=== PATIENT | female | born 1945 | race African-American/Black ===

== ENCOUNTER 2021-06-23 22:02 | Observation (INO) ==
[2021-06-23] MEDS ORDERED: ASPIRIN 325 MG TABLET PO STA (22:30)
[2021-06-23 23:16] LABS: Basophils % 0.6 % (0.0-0.8); Eosinophils # 0.1 10*3/uL (0.0-0.87); Eosinophils % 1.2 % (0.00-10.9); Hematocrit 38.9 VOL% (35.7-47.0); Hemoglobin 12.7 GM/DL (12.0-16.0); Immature Granulocytes % 0.2 %; Immature Granulocytes Absolute 0.01 #; Lymphocytes % 39.2 % (21.3-54.2); Mean Corpuscular HGB Conc 32.6 GM/DL (32-36); Mean Corpuscular Volume 94.4 FL (87-102); Mean Platelet Volume 10.3 FL (9.6-12.0); Monocytes % 9.4 % (1.7-12.7); Neutrophils % 49.4 % (38.7-73.9); Platelet Count 276 T/CUMM (130-400); Red Blood Count 4.12 MC/CUMM (3.8-5.5); Red Cell Distribution Width 12.5 % (9.3-17.3); White Blood Count 5.1 T/CUMM (4-12)
[2021-06-24 00:39] LABS: Albumin 3.4 G/DL (3.4-5.0); Bilirubin,Total 0.6 MG/DL (0.20-1.00); Calcium 9.4 MG/DL (8.5-10.1); Osmolality,Calculated 276.5 MOS/KG (273-304); Potassium 4.2 MMOL/L (3.5-5.1); Total Protein 7.6 G/DL (6.4-8.2)
[2021-06-24] MEDS ORDERED: NITROGLYCERIN 2% OINT 1 INCH/GM PACK TOP STA (00:43)
[2021-06-24] MEDS ORDERED: ONDANSETRON 4 MG/2 ML VIAL IV PRN (01:01)
[2021-06-24] MEDS ORDERED: ACETAMINOPHEN 325 MG TABLET PO PRN (01:01)
[2021-06-24] MEDS: ENOXAPARIN 40 MG/0.4 ML SYRINGE SUBCUT SCH (04:30)
[2021-06-24 06:40] LABS: Risk Ratio 2.06; VLDL Cholesterol 15.6 MG/DL
[2021-06-24] MEDS: PANTOPRAZOLE 40 MG TABLET PO SCH (09:02)
[2021-06-24] MEDS ORDERED: METOPROLOL TARTRATE 25 MG TABLET PO STA (12:19)
[2021-06-24] MEDS: LOSARTAN 50 MG TABLET PO SCH (13:10)
[2021-06-24] MEDS ORDERED: ATORVASTATIN 40 MG TABLET PO SCH (21:00)
[2021-06-24] MEDS: TICAGRELOR 90 MG TABLET PO SCH (22:10)
[2021-06-24] MEDS: METOPROLOL TARTRATE 25 MG TABLET PO SCH (22:10)
[2021-06-25] MEDS: ENOXAPARIN 40 MG/0.4 ML SYRINGE SUBCUT SCH (05:00)
[2021-06-25 06:34] LABS: Basophils % 0.6 % (0.0-0.8); Eosinophils # 0.1 10*3/uL (0.0-0.87); Eosinophils % 2.1 % (0.00-10.9); Hematocrit 42.3 VOL% (35.7-47.0); Hemoglobin 13.6 GM/DL (12.0-16.0); Immature Granulocytes % 0.4 %; Immature Granulocytes Absolute 0.02 #; Lymphocytes # 1.7 10*3/uL (1.4-4.0); Lymphocytes % 36.4 % (21.3-54.2); Mean Corpuscular HGB Conc 32.2 GM/DL (32-36); Mean Corpuscular Volume 94.2 FL (87-102); Mean Platelet Volume 10.1 FL (9.6-12.0); Monocytes % 8.8 % (1.7-12.7); Neutrophils % 51.7 % (38.7-73.9); Platelet Count 294 T/CUMM (130-400); Red Blood Count 4.49 MC/CUMM (3.8-5.5); Red Cell Distribution Width 12.5 % (9.3-17.3); White Blood Count 4.8 T/CUMM (4-12)
[2021-06-25 07:17] LABS: Calcium 9.3 MG/DL (8.5-10.1); Osmolality,Calculated 276.5 MOS/KG (273-304); Potassium 3.6 MMOL/L (3.5-5.1)
[2021-06-25] MEDS ORDERED: ASPIRIN EC 81 MG TABLET PO SCH (09:00)
[2021-06-25] MEDS: PANTOPRAZOLE 40 MG TABLET PO SCH (09:15)
[2021-06-25] MEDS: TICAGRELOR 90 MG TABLET PO SCH (09:15)
[2021-06-25] MEDS: METOPROLOL TARTRATE 25 MG TABLET PO SCH (09:15)
[2021-06-25] MEDS: LOSARTAN 50 MG TABLET PO SCH (09:15)
[2021-06-25 10:20] VITALS: BP 128/89
== END 2021-06-25 10:10 | disposition home health service (06) ==
LOC: EDUNIT# → EDBD → N.EDINP 22:02 → N.ED 22:02 → SUATTDRO 06-24 01:01 → N.EDINP 06-25 10:35
PROVIDERS: ADMIT Hospitalist; ATTEND Internal Medicine